=== PATIENT | male | born 2000 | race Caucasian/White ===

== ENCOUNTER → 2021-01-18 | Outpatient (CLI) | payer BC ==
[~2021-01-18] MED LIST: Percocet 5-3251 EACH PO
== END | disposition home or self-care (01) ==
LOC: LAB 11:30 → LAB SHORT 11:30
DX: U07.1 COVID-19 (principal)
CPT/HCPCS: U0003

== ENCOUNTER → 2022-03-08 | Outpatient (CLI) | payer BC ==
[2022-03-10 08:10] LABS: HIV AB/P24 AG SCREEN Non Reactive (Non Reactive)
[2022-03-10 10:11] LABS: HBSAG SCREEN Negative (Negative); HCV AB <0.1 (0.0-0.9); HEP A AB, IGM Negative (Negative); HEP B CORE AB, IGM Negative (Negative)
[2022-03-12 01:10] LABS: CHLAMYDIA TRACHOMATIS, NAA Negative (Negative)
== END ==
LOC: LAB SHORT 18:19
PROVIDERS: Physician Assistant
DX: N34.1 Nonspecific urethritis (principal)
CPT/HCPCS: 80074; 86592; 87389

== ENCOUNTER → 2022-04-07 | Emergency (ER) | payer BC ==
[~2022-04-07] VITALS: Ht 182.9 cm; Wt 77.1 kg
[~2022-04-07] MED LIST changes: +Zovirax800 MG PO
== END ==
LOC: ER 19:50
DX: S31.139A Puncture wound of abdominal wall without foreign body, unspecified quadrant without penetration into peritoneal cavity, initial encounter (principal); B00.9 Herpesviral infection, unspecified; F17.220 Nicotine dependence, chewing tobacco, uncomplicated; W29.4XXA Contact with nail gun, initial encounter
CPT/HCPCS: A9270

== ENCOUNTER 2023-08-08 14:03 | Emergency (ER) | payer BC ==
[~2023-08-08] VITALS: Ht 180.3 cm; Wt 72.6 kg
[2023-08-08 14:16] VITALS: BP 122/91
== END 2023-08-08 16:34 | disposition home or self-care (01) ==
LOC: ER 14:03
DX: F10.129 Alcohol abuse with intoxication, unspecified (principal); F17.220 Nicotine dependence, chewing tobacco, uncomplicated; Y90.8 Blood alcohol level of 240 mg/100 ml or more